=== PATIENT | male | born 1985 | race Caucasian/White ===

== ENCOUNTER 2017-01-06 21:56 | Emergency (ER) | payer SELFPAY ==
[~2017-01-06] VITALS: Ht 170.2 cm; Wt 70.0 kg
[~2017-01-06 21:56] MED LIST: Z.0.NO CURRENT MEDS
[2017-01-06 22:29] VITALS: BP 123/63; PULSE 85; RESP 16; TEMP 98.6; O2SAT 97
--- NOTE | 2017-01-06 22:39 | PD ---
Physical Exam Date Seen by Provider: Jan 06, 2017 Time Seen by Provider: 22:32 Narrative Pt is a 31 y/o male presenting to the ED with cc of SOB. Pt states he's been to the ER three times in the last 2 weeks. He's been on abx and steroids with no improvement. Pt reports a cough, that is constant. Cough is dry and irritating. Pt dips tobacco and smokes tobacco for the last year. Pt reports pain as a 10/ 10 in his chest worse with coughing. Pt also endorses marijuana use 3 x a week. He denies any other illicit drug use. VSS, awaiting bed placement Data Data Last Documented VS Vital Signs Date Time Temp Pulse Resp B/P Pulse Ox O2 Delivery O2 Flow Rate FiO2 01/06/17 22:29 98.6 85 16 123/63 97 Room Air [facility] Supervised Visit with SANDRO: Nisreen Miller Jan 06, 2017 22:39
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
[2017-01-06] MEDS ORDERED: guaiFENesin/DEXTROMETHORPHAN 200 MG/20 MG/10 ML CUP PO ONE (23:00)
--- NOTE | 2017-01-06 23:40 | RADRPT ---
EXAM DATE/TIME: 01/06/2017 23:11 [facility] COMPARISON: CHEST SINGLE AP, December 03, 2008, 6:07. EXTERNAL COMPARISON : [facility] INDICATIONS : Cough, shortness of breath for 3 weeks MEDICAL HISTORY : None. SURGICAL HISTORY : None. ENCOUNTER: Initial ACUITY: 3 weeks PAIN SCORE: 5/10 LOCATION: Bilateral chest FINDINGS: PA and lateral views of the chest demonstrate the lungs to be symmetrically aerated without evidence of mass, infiltrate or effusion except for 1.5 spiculated area in the left upper lobe between the fif th and sixth ribs posteriorly. Could be small area of bronchiectasis or bronchopneumonia. Its new sin ce 2008. The cardiomediastinal contours are unremarkable. Osseous structures are intact. CONCLUSION: Small area of increased density in the left upper lobe scarring versus possible bronchopneumonia Omer Adams MD on January 06, 2017 at 23:37 Board Certified Radiologist. This report was verified electronically.
[2017-01-06] MEDS ORDERED: GUAISYP7 PO (23:47)
[2017-01-06] MEDS ORDERED: LEVA750T PO (23:47)
[2017-01-06 23:54] VITALS: BP 124/87
== END 2017-01-06 23:54 | disposition home or self-care (01) ==
LOC: NEPD 21:56
DX: J40 Bronchitis, not specified as acute or chronic (principal); F17.210 Nicotine dependence, cigarettes, uncomplicated; F12.10 Cannabis abuse, uncomplicated
CPT/HCPCS: 71020; 99283

== ENCOUNTER 2017-05-14 12:05 | Emergency (ER) | payer OTHER ==
[~2017-05-14] VITALS: Ht 177.8 cm; Wt 75.0 kg
[~2017-05-14 12:05] MED LIST changes: +GUAISYP7 PO; +LEVA750T PO; -Z.0.NO CURRENT MEDS
[2017-05-14] MEDS ORDERED: TETANUS/DIPHTHERIA TOXOID ADULT 0.5 ML VIAL IM ONE (12:30)
[2017-05-14] MEDS ORDERED: SODIUM CHLORIDE 0.9% FLUSH 10 ML FLUSH IVF PRN (12:30)
[2017-05-14] MEDS ORDERED: IOHEXOL 350 MG/ML 10 ML VIAL (for RAD DIAG) IVCONTRAST ONE (13:04)
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
[2017-05-14 13:19] VITALS: RESP 18; O2SAT 98
[2017-05-14 13:22] LABS: AUTOMATED NEUTROPHIL # 5.7 TH/MM3 (1.8-7.7); BASOPHIL # 0.1 TH/MM3 (0-0.2); BASOPHIL % 1.5 % (0.0-2.0); EOSINOPHIL # 0.4 TH/MM3 (0-0.4); EOSINOPHIL % 4.5 % (0.0-4.0); HEMATOCRIT 41.6 % (39.0-51.0); HEMO FLAGS DIFF FINAL; LYMPH % 16.7 % (9.0-44.0); LYMPHOCYTE # 1.4 TH/MM3 (1.0-4.8); MEAN CELL VOLUME 88.6 FL (80.0-100.0); MEAN CORPUSCULAR HEMOGLOBIN 29.8 PG (27.0-34.0); MEAN CORPUSCULAR HGB CONC 33.6 % (32.0-36.0); MONO % 11.1 % (0.0-8.0); NEUT % 66.2 % (16.0-70.0); PLATELET COUNT 227 TH/MM3 (150-450); RED CELL DISTRIBUTION WIDTH 12.9 % (11.6-17.2); WHITE BLOOD COUNT 8.5 TH/MM3 (4.0-11.0)
[2017-05-14 13:23] VITALS: BP 127/84; PULSE 58; RESP 18; TEMP 98.3; O2SAT 99
[2017-05-14 13:27] LABS: APTT (PATIENT) 31.5 SEC (24.3-30.1); PROTHROMBIN TIME - PATIENT 10.8 SEC (9.8-11.6)
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
[2017-05-14 13:37] LABS: ALCOHOL LESS THAN 3 MG/DL (0-5); ANION GAP 8 MEQ/L (5-15); BICARBONATE 30.5 MEQ/L (21.0-32.0); BLOOD UREA NITROGEN 24 MG/DL (7-18); CHLORIDE 99 MEQ/L (98-107); GLOMERULAR FILTRATION RATE 92 ML/MIN (>89); POTASSIUM 3.3 MEQ/L (3.5-5.1); SODIUM (NA) 137 MEQ/L (136-145)
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
[2017-05-14] MEDS ORDERED: CYCL5TAB PO (14:35)
[2017-05-14] MEDS ORDERED: IBUP-232 PO (14:35)
[2017-05-14 15:03] LABS: BLOOD, URINE NEG (NEG); COMMENT (UR) CULT NOT INDICATED; CULTURE IF INDICATED CULT NOT INDICATED; GLUCOSE,URINE NEG (NEG); HYALINE CAST, URINE 3 /lpf (RARE); KETONE, URINE NEG (NEG); NITRITE,URINE NEG (NEG); PH, URINE 5.5 (5.0-8.5); SQUAMOUS EPITHELIAL CELL URINE <1 /hpf (0-5); URINE COLOR YELLOW (YELLW/STRAW)
== END 2017-05-14 15:06 | disposition home or self-care (01) ==
LOC: NEPE 12:05
DX: S32.009A Unspecified fracture of unspecified lumbar vertebra, initial encounter for closed fracture (principal); S20.222A Contusion of left back wall of thorax, initial encounter; V89.2XXA Person injured in unspecified motor-vehicle accident, traffic, initial encounter; F19.10 Other psychoactive substance abuse, uncomplicated; F15.10 Other stimulant abuse, uncomplicated; F11.10 Opioid abuse, uncomplicated; Z23 Encounter for immunization
CPT/HCPCS: 70450; 71260; 72125; 74177; 80048; 80307; 81001; 85025; 85610; 85730; 86850; 86900; 86901; 90471; 99285; Q9967